=== PATIENT | male | born 1985 | race Caucasian/White ===

== ENCOUNTER 2017-11-08 19:42 | Emergency (ER) | payer SELFPAY ==
[~2017-11-08] VITALS: Ht 170.2 cm; Wt 86.2 kg
--- NOTE | 2017-11-08 19:54 | ED.ADGEN ---
Adult General Chief Complaint Chief Complaint ".. I got this milking discharge out of penis...and it hurts to pee..." HPI HPI Patient is a 32 year old male who presents with above hx ,of penile discharge and dysuria. Pt. patient denies previous history of STDs or urinary tract infections. Patient has had 5 lifetime sex partners. Patient recently released from longterm, and upon entry to longterm he was found to not have any hepatitis, syphilis, HIV or infectious disorders. Currently has only had sexual intercourse with his . His denies any symptomatic complaints of STD. Patient does in fact have a milky discharge from his penis. Circumcised male. No testicle tenderness. Patient declines rectal exam. Patient has history as a child he required urethral dilation- for a stricture. Review of Systems Review of Systems Constitutional: Denies fever or chills [] Eyes: Denies change in visual acuity, redness, or eye pain [] HENT: Denies nasal congestion or sore throat [] Respiratory: Denies cough or shortness of breath [] Cardiovascular: No additional information not addressed in HPI [] GI: Denies abdominal pain, nausea, vomiting, bloody stools or diarrhea [] : Complaints of dysuria and milky discharge from penis Musculoskeletal: Denies back pain or joint pain [] Integument: Denies rash or skin lesions [] Neurologic: Denies headache, focal weakness or sensory changes [] Endocrine: Denies polyuria or polydipsia [] All other systems were reviewed and found to be within normal limits, except as documented in this note. Family History Family History Noncontributory Current Medications Current Medications Current Medications Medications (Trade) Dose Ordered Sig/Tati Start Time Stop Time Status Last Admin Dose Admin Azithromycin (Zithromax) 1,000 mg 1X ONCE 11/08/17 21:30 11/08/17 21:31 DC 11/08/17 21:34 1,000 MG Ceftriaxone Sodium (Rocephin Im) 1 gm 1X ONCE 11/08/17 21:30 11/08/17 21:31 DC 11/08/17 21:33 1 GM Metronidazole (Flagyl) 1,000 mg 1X ONCE 11/08/17 21:30 11/08/17 21:31 DC Ondansetron HCl (Zofran Odt) 8 mg 1X ONCE 11/08/17 21:30 11/08/17 21:31 DC 11/08/17 21:34 8 MG Phenazopyridine HCl (Pyridium) 200 mg 1X ONCE 11/08/17 21:30 11/08/17 21:31 DC 11/08/17 21:33 200 MG Allergies Allergies Allergies Coded Allergies Type Severity Reaction Last Updated Verified No Known Drug Allergies 11/08/17 No Physical Exam Physical Exam Constitutional: Moderate distress, non-toxic appearance. [] HENT: Normocephalic, atraumatic, bilateral external ears normal, oropharynx moist, no oral exudates, nose normal. [] Eyes: PERRLA, EOMI, conjunctiva normal, no discharge. [] Neck: Normal range of motion, no tenderness, supple, no stridor. [] Cardiovascular:Heart rate regular rhythm, no murmur [] Lungs & Thorax: Bilateral breath sounds equal apex with scattered wheezes on auscultation [] Abdomen: Bowel sounds normal, soft, no tenderness, no masses, no pulsatile masses. [] Genital exam as per history of present illness Skin: Warm, dry, no erythema, no rash. [] Back: No tenderness, no CVA tenderness. [] Extremities: No tenderness, no cyanosis, no clubbing, ROM intact, no edema. [] Neurologic: Alert and oriented X 3, normal motor function, normal sensory function, no focal deficits noted. [] Psychologic: Affect anxious, judgement normal, mood normal. [] Current Patient Data Vital Signs Vital Signs Date Time Temp Pulse Resp B/P (MAP) Pulse Ox O2 Delivery O2 Flow Rate FiO2 11/08/17 22:06 83 18 153/92 (112) 96 Room Air 11/08/17 20:05 98.9 Lab Results Laboratory Tests Test 11/08/17 19:56 Urine Collection Type Unknown Urine Color Theresa Urine Clarity Hazy Urine pH 5.5 Urine Specific [place] 1.025 Urine Protein 30 mg/dl (NEG-TRACE) Urine Glucose (UA) Neg mg/dL (NEG) Urine Ketones (Stick) Trace mg/dL (NEG) Urine Blood Neg (NEG) Urine Nitrite Neg (NEG) Urine Bilirubin Neg (NEG) Urine Urobilinogen Dipstick 2 mg/dL (0.2 mg/dL) Urine Leukocyte Esterase Neg (NEG) Urine RBC 0 /HPF (0-2) Urine WBC 11-20 /HPF (0-4) Urine Squamous Epithelial Cells Occ /LPF Urine Bacteria 0 /HPF (0-FEW) Urine Mucus Mod /LPF EKG EKG [] Radiology/Procedures Radiology/Procedures [] Course & Med Decision Making Course & Med Decision Making Pertinent Labs and Imaging studies reviewed. (See chart for details). Patient to practice safe sex. Patient follow-up cultures taken here. Patient take Keflex 500 mg 3 times a day for the next 10 days. Patient push fluids. Patient push vitamin C drinks. Patient return of any concerns. [] Final Impression Final Impression 1. Urinary tract infection 2. Urethritis[] Problems: Dragon Disclaimer Dragon Disclaimer This electronic medical record was generated, in whole or in part, using a voice recognition dictation system. JAMIE ANDINO MD Nov 08, 2017 19:54
[2017-11-08 20:31] LABS: BACTERIA,URINE 0 /HPF (0-FEW); BILIRUBIN,URINE NEG (NEG); CLARITY,URINE HAZY; COLOR,URINE AMBER; GLUCOSE,URINE NEG (NEG); NITRITE,URINE NEG (NEG); RBC,URINE 0 /HPF (0-2); SQUAMOUS EPITHELIAL CELL,UR OCC /LPF; UROBILINOGEN,URINE 2 mg/dL (0.2 mg/dL)
[2017-11-08] MEDS ORDERED: CEPH-264 PO (21:20)
[2017-11-08] MEDS ORDERED: cefTRIAXone IM 1 GM VIAL IM ONE (21:30)
[2017-11-08] MEDS ORDERED: AZITHROMYCIN 250 MG TABLET. PO ONE (21:30)
[2017-11-08] MEDS ORDERED: PHENAZOPYRIDINE 200 MG TABLET. PO ONE (21:30)
[2017-11-08] MEDS ORDERED: metroNIDAZOLE 500 MG TABLET PO ONE ×2 (21:30)
[2017-11-08] MEDS ORDERED: ONDANSETRON ODT 4 MG TAB.RAPDIS PO ONE (21:30)
[2017-11-08 22:06] VITALS: BP 153/92
[2017-11-10 07:12] LABS: HCV ANTIBODY >11.0 s/co ratio (0.0-0.9); HEP A IGM ABDY Negative (Negative)
[2017-11-10 15:13] LABS: CHLAMYDIA PROBE Negative (Negative)
== END 2017-11-08 22:06 | disposition home or self-care (01) ==
LOC: ER 19:42
DX: N39.0 Urinary tract infection, site not specified (principal)
CPT/HCPCS: 36415; 80074; 81001; 86593; 86703; 87491; 87591; 96372; 99284; J0456; J0696; Q0162